=== PATIENT | female | born 1955 | race Caucasian/White ===

== ENCOUNTER → 2021-07-01 | Outpatient (CLI) | payer MEDICARE ==
[2021-07-01 14:21] LABS: Basophils # (A) 0.05 X 10*3/uL (0.00-0.10); Basophils % (A) 0.8 %; Eosinophils # (A) 0.18 X 10*3/uL (0.04-0.35); Eosinophils % (A) 2.9 %; HCT 45.6 % (37.2-46.3); HGB 14.7 g/dL (12.0-15.0); Immature Grans, Automated 0.7 %; Lymphocytes % (A) 27.8 %; MCH 29.9 pg (27.0-32.0); MCHC 32.2 g/dL (32.0-37.0); MCV 92.9 fL (80.0-97.0); Mean Platelet Volume 9.8 fL (9.5-12.2); Monocytes # (A) 0.32 X 10*3/uL (0.20-1.00); Monocytes % (A) 5.2 %; NRBC Per 100 WBC 0 /100 WBCS (0.0-0.0); Neutrophils # (A) 3.83 X 10*3/uL (1.80-7.70); Neutrophils % (A) 62.6 %; Platelet Count 153 X 10*3/uL (140-440); RBC 4.91 X 10*6/uL (4.10-5.20); RDW 12.8 % (11.5-14.5); WBC 6.12 X 10*3/uL (4.50-10.00)
[2021-07-01 14:43] LABS: African American GFR (CKD) 108.1 (60.0-200.0); Albumin 4.4 g/dL (3.8-4.9); Albumin/Globulin Ratio 1.95 (1.60-3.17); Anion Gap 10.5 mmol/L (10.00-18.00); BUN/Creat Ratio 19.49 Ratio (12.00-20.00); Blood Urea Nitrogen 12.9 mg/dL (9.0-27.0); Calcium 9.2 mg/dL (8.7-10.3); Carbon Dioxide 24.4 mmol/L (20.0-27.5); Globulin 2.3 g/dL (1.6-3.3); Non-African American GFR(CKD) 93.3 (60.0-200.0); Potassium 4.9 mmol/L (3.5-5.5); Total Bilirubin 0.3 mg/dL (0.30-1.20); Total Protein 6.6 g/dL (6.2-8.2)
== END | disposition home or self-care (01) ==
LOC: LABWHC1 08:10
PROVIDERS: ATTEND Internal Medicine Gastroenterology
DX: B18.2 Chronic viral hepatitis C (principal)
CPT/HCPCS: 36415; 80053; 85025

== ENCOUNTER → 2021-11-05 | Outpatient (CLI) | payer MEDICARE ==
[2021-11-05 14:38] LABS: Basophils # (A) 0.05 X 10*3/uL (0.00-0.10); Basophils % (A) 0.8 %; Eosinophils # (A) 0.14 X 10*3/uL (0.04-0.35); Eosinophils % (A) 2.3 %; HCT 43.4 % (37.2-46.3); HGB 14.2 g/dL (12.0-15.0); Immature Grans, Automated 0.3 %; Lymphocytes # (A) 1.93 X 10*3/uL (0.90-5.00); Lymphocytes % (A) 31.9 %; MCH 30.3 pg (27.0-32.0); MCHC 32.7 g/dL (32.0-37.0); MCV 92.5 fL (80.0-97.0); Mean Platelet Volume 9.8 fL (9.5-12.2); Monocytes # (A) 0.29 X 10*3/uL (0.20-1.00); Monocytes % (A) 4.8 %; NRBC Per 100 WBC 0 /100 WBCS (0.0-0.0); Neutrophils # (A) 3.62 X 10*3/uL (1.80-7.70); Neutrophils % (A) 59.9 %; Platelet Count 149 X 10*3/uL (140-440); RBC 4.69 X 10*6/uL (4.10-5.20); RDW 13.1 % (11.5-14.5); WBC 6.05 X 10*3/uL (4.50-10.00)
[2021-11-05 15:10] LABS: ALT <5 U/L (8-44); AST 14 U/L (13-35); African American GFR (CKD) 78.1 (60.0-200.0); Albumin 4.3 g/dL (3.8-4.9); Albumin/Globulin Ratio 1.77 (1.60-3.17); Alkaline Phosphatase 67 U/L (41-126); BUN/Creat Ratio 16.28 Ratio (12.00-20.00); Blood Urea Nitrogen 14.6 mg/dL (9.0-27.0); Calcium 9.1 mg/dL (8.7-10.3); Carbon Dioxide 25.6 mmol/L (20.0-27.5); Chloride 104 mmol/L (96-109); Globulin 2.4 g/dL (1.6-3.3); Glucose 179 mg/dL (70-110); Non-African American GFR(CKD) 67.4 (60.0-200.0); Potassium 4.5 mmol/L (3.5-5.5); Sodium 139 mmol/L (135-145); Total Protein 6.7 g/dL (6.2-8.2)
== END | disposition home or self-care (01) ==
LOC: LABWHC1 09:14
PROVIDERS: ATTEND Internal Medicine Gastroenterology
DX: B18.2 Chronic viral hepatitis C (principal)
CPT/HCPCS: 36415; 80053; 85025; 87522

== ENCOUNTER → 2024-01-25 | Outpatient (CLI) | payer MEDICARE ==
--- NOTE | 2024-01-25 10:33 | MM ---
Reason for Exam: Screening (asymptomatic). Last mammogram was performed 1 year(s) and 1 month(s) ago. Patient History: Menarche at age 14. First Full-Term at age 23. Hysterectomy at age 25. Postmenopausal. Risk Values: Meseret 5 year model risk: 1.5%. NCI Lifetime model risk: 5.2%. Prior Study Comparison: 12/25/2020 Bilateral Screening Mammogram, Unknown. 12/31/2021 Bilateral Screening Mammogram, Unknown. 01/05/2023 Bilateral Screening Mammogram, [facility]. Tissue Density: There are scattered areas of fibroglandular density. Findings: Analyzed By CAD. Right breast: There is no suspicious group of microcalcifications or new suspicious mass. Left breast: There is no suspicious group of microcalcifications or new suspicious mass. Overall Assessment: Negative, BI-RAD 1 Management: Screening Mammogram of both breasts in [address] [facility] will attempt to contact patient to return for supplemental views and ultrasound if indicated. Patient should continue monthly self-breast exams. A clinical breast exam by your physician is recommended on an annual basis. This exam should not preclude additional follow-up of suspicious palpable abnormalities. Note on Meseret scores and lifetime risk: 1. A Meseret score greater than 3% is considered moderate risk. If this is the case, consider specialist referral to assess eligibility for a risk reducing agent. 2. If overall lifetime risk for the development of breast cancer is 20% or higher, the patient may qualify for future screening with alternating mammogram and breast MRI. [facility], , 01/25/2024 10:31 AM. Electronically signed and approved by: Shubham Marc DO
== END | disposition home or self-care (01) ==
LOC: RADMAMWWP 07:42
PROVIDERS: ATTEND Family Medicine
DX: Z12.31 Encounter for screening mammogram for malignant neoplasm of breast (principal); Z78.0 Asymptomatic menopausal state; R92.323 Mammographic fibroglandular density, bilateral breasts
CPT/HCPCS: 77067

== ENCOUNTER 2024-04-10 08:21 | Day surgery (SDC) | payer MEDICARE ==
[2024-04-07 10:41] VITALS: BMI 27.4
[~2024-04-10 08:21] MED LIST: LACTATED RINGERS 1,000 ML IV SCH; LIDOCAINE 1% (10MG/ML) FOR IV START INTRADERMA PRN
[2024-04-10] MEDS: LACTATED RINGERS 1,000 ML IV ONE (08:55)
[2024-04-10] MEDS ORDERED: PROPOFOL 10 MG/ML 20 ML VIAL IV ONE (08:59)
[2024-04-10] MEDS ORDERED: LIDOCAINE 1% INJ 10MG/ML (20 ML MDV) ONE (08:59)
[2024-04-10 09:00] VITALS: TEMP 97.4
[2024-04-10 09:06] LABS: Glucose,Whole Blood 219 mg/dL (70-110)
[2024-04-10 09:40] VITALS: RESP 16
--- NOTE | 2024-04-10 09:42 | P.PCN ---
Date of Procedure: 04/10/24 Preoperative Diagnosis: Positive Cologuard Postoperative Diagnosis: Sigmoid colon polyp Poor prep Procedure(s) Performed: Colonoscopy with hot snare polypectomy Anesthesia: MAC Surgeon: Milagro Marshall Pathology: none sent Condition: stable Disposition: same day Indications for Procedure: 68-year-old female with history of colon polyps presents today for colonoscopy. Last colonoscopy was 10 years ago. States her mother had history of colon cancer. Risks, benefits and alternatives were provided to the patient. Operative Findings: Significantly poor prep with difficult colonoscopy. Sigmoid colon polyp was removed with hot snare polypectomy and unable to be retrieved as it was unable to be found with the poor preparation. Description of Procedure: The patient was brought to the endoscopy suite and placed in left lateral decubitus position and adequate sedation was achieved using conscious sedation. Digital rectal exam was performed and mild internal hemorrhoids were palpated. An endoscope was then placed in the rectum and advanced to the cecum as identified by landmarks including the appendiceal orifice and the ileocecal valve. The prep was poor. The colonoscope was then slowly withdrawn, examining for any mucosal abnormalities. The cecum, ascending, transverse, descending and sigmoid colon were visualized poorly. The polyp was noted in the sigmoid colon. This was removed with hot snare polypectomy. Hemostasis was maintained. The polyp was lost with the poor preparation and unable to be retrieved. Retroflexion was performed in the rectum and mild internal hemorrhoids. Excess air was removed, the colonoscope withdrawn and the procedure terminated. The patient was then transferred to the recovery unit in stable condition. Repeat colonoscopy should be performed in the next 3 to 6 months as the preparation was quite poor and patient did have large polyp noted that was not retrieved.
[2024-04-10 09:55] VITALS: BP 144/77; PULSE 87
[2024-04-10 10:08] LABS: Glucose,Whole Blood 176 mg/dL (70-110)
== END 2024-04-10 10:12 | disposition home or self-care (01) ==
LOC: ORWHC2ENDO 08:21
PROVIDERS: ATTEND Surgery
DX: R19.5 Other fecal abnormalities (principal); K64.8 Other hemorrhoids; Z86.0100 Personal history of colon polyps, unspecified; Z80.0 Family history of malignant neoplasm of digestive organs; E11.9 Type 2 diabetes mellitus without complications; E07.9 Disorder of thyroid, unspecified; F12.90 Cannabis use, unspecified, uncomplicated; Z79.84 Long term (current) use of oral hypoglycemic drugs; Z88.6 Allergy status to analgesic agent; Z88.0 Allergy status to penicillin
CPT/HCPCS: 45385; J2003; J2704

== ENCOUNTER 2024-09-04 08:36 | Day surgery (SDC) | payer MEDICARE ==
[2024-09-01 09:19] VITALS: BMI 27.4
[~2024-09-04 08:36] MED LIST changes: -LIDOCAINE 1% (10MG/ML) FOR IV START INTRADERMA PRN
[2024-09-04 09:12] VITALS: TEMP 9.8
[2024-09-04] MEDS: LACTATED RINGERS 1,000 ML IV ONE (09:21)
[2024-09-04] MEDS ORDERED: PROPOFOL 10 MG/ML 20 ML VIAL IV ONE (09:24)
[2024-09-04 09:28] LABS: Glucose,Whole Blood 211 mg/dL (70-110)
[2024-09-04] MEDS: EPINEPHrine 10 ML SYRINGE (0.1 MG/ML) MISCELLANE ONE ×2 (10:00)
--- NOTE | 2024-09-04 10:21 | P.PCN ---
Date of Procedure: 09/04/24 Preoperative Diagnosis: History of polyps Screening Postoperative Diagnosis: Sigmoid colon polyp Transverse colon polyp Procedure(s) Performed: Colonoscopy with hot snare polypectomy, epinephrine injection and clip placement Anesthesia: MAC Surgeon: Milagro Marshall Pathology: other (Transverse colon and sigmoid colon polyp) Condition: stable Disposition: same day Indications for Procedure: 69-year-old female today for screening colonoscopy. Her last colonoscopy was approximately 6 months ago with inability to complete secondary to poor prep. She did have polyps found during that scope and plan is for reevaluation today. Risks, benefits and alternatives were provided to the patient. All questions answered prior to attending the endoscopy suite Operative Findings: Large sigmoid colon polyp Transverse colon Description of Procedure: The patient was brought to the endoscopy suite and placed in left lateral decubitus position and adequate sedation was achieved using conscious sedation. Digital rectal exam was performed and mild internal hemorrhoids were palpated. An endoscope was then placed in the rectum and advanced to the cecum as identified by landmarks including the appendiceal orifice and the ileocecal valve. The prep was good. The colonoscope was then slowly withdrawn, examining for any mucosal abnormalities. The cecum, ascending, transverse, descending and sigmoid colon were visualized adequately. There were no large neoplastic lesions noted throughout the colon. Small polyp was noted in the transverse colon. This was removed with forcep polypectomy, similarly a larger polyp was noted in the sigmoid colon this was removed with hot snare polypectomy. Initially some oozing from that site was noted and epinephrine injection was performed along with clip placement. Bleeding did significantly improve. Hemostasis was maintained. Retroflexion was performed in the rectum and internal hemorrhoids. Excess air was removed, the colonoscope withdrawn and the procedure terminated. The patient was then transferred to the recovery unit in stable condition. Repeat colonoscopy should be performed in 3 years.
[2024-09-04 10:31] VITALS: BP 155/100; PULSE 86; RESP 16
[2024-09-04 10:40] LABS: Glucose,Whole Blood 281 mg/dL (70-110)
[2024-09-04 10:40] LABS: Glucose,Whole Blood 289 mg/dL (70-110)
== END 2024-09-04 11:22 | disposition home or self-care (01) ==
LOC: ORWHC2ENDO 08:36
PROVIDERS: ATTEND Surgery
DX: R19.5 Other fecal abnormalities (principal); Z12.11 Encounter for screening for malignant neoplasm of colon; D12.3 Benign neoplasm of transverse colon; Z86.0100 Personal history of colon polyps, unspecified; K57.30 Diverticulosis of large intestine without perforation or abscess without bleeding
CPT/HCPCS: 45380; 45385; 45381; J2704; J0168; 88305